=== PATIENT | female | born 1980 | race Caucasian/White ===

== ENCOUNTER 2017-03-12 15:06 | Emergency (ER) | payer MEDICAID | END 2017-03-12 16:39 | disposition home or self-care (01) | LOC: FTE 15:06 | DX: M54.6 Pain in thoracic spine (principal) | CPT/HCPCS: 99283; Z7502 ==

== ENCOUNTER 2017-08-13 19:03 | Emergency (ER) | payer MEDICAID ==
[2017-08-13] MEDS: MECLIZINE 12.5 MG TAB PO (20:56)
[2017-08-13] MEDS: ONDANSETRON (ODT) 4 MG TAB ODT (20:56)
[2017-08-13 20:58] LABS: URINE BLOOD (Dip) POC Negative (NEGATIVE); URINE GLUCOSE (Dip) POC Negative (NEGATIVE); URINE KETONES (Dip) POC Negative (NEGATIVE); URINE LEUKOCYTE EST (Dip) POC Negative (NEGATIVE); URINE NITRITE (Dip) POC Negative (NEGATIVE); URINE TOTAL PROTEIN POC Negative (NEGATIVE)
== END 2017-08-13 21:56 | disposition home or self-care (01) ==
LOC: FTE 19:03
DX: R42 Dizziness and giddiness (principal); R11.0 Nausea
CPT/HCPCS: 81003; 81025; 82962; 99283

== ENCOUNTER 2018-01-08 08:51 | Emergency (ER) | payer MEDICAID ==
[2018-01-08] MEDS: KETOROLAC 30 MG INJ IM (09:58)
== END 2018-01-08 10:53 | disposition home or self-care (01) ==
LOC: FTE 08:51
DX: M72.2 Plantar fascial fibromatosis (principal)
CPT/HCPCS: 73630; 73630-LT; 81025; 96372; 99284-25

== ENCOUNTER 2018-08-10 08:20 | Emergency (ER) | payer MEDICAID | END 2018-08-10 09:42 | disposition home or self-care (01) | LOC: FTE 09:42 | DX: R05 Cough (principal) | CPT/HCPCS: 71046; 99283-25 ==

== ENCOUNTER 2018-10-30 16:59 | Emergency (ER) | payer MEDICAID | END 2018-10-30 17:59 | disposition home or self-care (01) | LOC: E/R 16:59 | DX: S60.222A Contusion of left hand, initial encounter (principal); W20.8XXA Other cause of strike by thrown, projected or falling object, initial encounter; Y92.9 Unspecified place or not applicable | CPT/HCPCS: 73130; 73130-LT; 99283-25 ==